=== PATIENT | male | born 1965 | race Caucasian/White ===

== ENCOUNTER 2023-01-30 11:40 | Inpatient (IN) | payer BC, SELFPAY ==
[2023-01-30 11:41] VITALS: BP 158/111; PULSE 99; RESP 18; TEMP 36.9; O2SAT 99; BMI 36.6
--- NOTE | 2023-01-30 12:43 | CT_ITS ---
STUDY: CT ABDOMEN AND PELVIS WITH CONTRAST REASON FOR EXAM: Male, 57 years old. Localized peritonitis right lower quadrant, DIARRHEA X 2 DAYS RADIATION DOSAGE (If Supplied By Facility): CTDIvol = ( 15.98 ) mGy, DLP = ( 1323.63 ) mGycm TECHNIQUE: Transaxial images were obtained from the dome of the diaphragm to the symphysis pubis without oral contrast. IV 100mL Isovue-300 was administered. Sagittal and coronal images were reconstructed. Individualized dose optimization techniques were used for this CT. COMPARISON: None. FINDINGS: The visualized lung bases are unremarkable. Coronary artery calcification. Normal liver. Normal gallbladder and extrahepatic biliary system. Normal spleen. Normal pancreas. Normal bilateral adrenal glands. Normal right kidney. Normal left kidney. Normal visualized stomach. Normal small intestine. There is diverticulosis, with thickening of the colon wall, and pericolonic inflammation changes consistent with acute diverticulitis. 2 tiny air bubbles are seen within the sigmoid mesentery along its antimesenteric side. This is suggestive of a contained localized perforation. A prominent sigmoid diverticulum is seen measuring 2.3 cm x 3 cm. There is redundancy of the sigmoid colon. The crosses to the right side of the midline. The appendix is visualized and appears normal. There is scattered atherosclerotic calcification of the abdominal aorta, without a demonstrated aneurysm. Normal inferior vena cava. There is borderline retroperitoneal lymphadenopathy with enlarged nodes no greater than 10mm in the short axis diameter. Normal urinary bladder. There is a 1.4 cm x 1.9 cm fatty lipoma in the superior aspect of the femoral abductor muscle. Straightening of the normal lumbar lordosis. Disc space narrowing and disc degeneration with subchondral sclerosis at the L5-S1 level. CT/Abdomen/Pelvis W IV Cont ONLY IMPRESSION: Acute sigmoid diverticulitis with inflammatory changes in a redundant sigmoid colon with localized perforation. Electronically Signed: Ac Dempsey MD at 14:02 EST ,
--- NOTE | 2023-01-30 12:47 | EDS_ITS ---
HPI HPI - GI History of Present Illness Chief Complaint: Abd Pain Detail of Chief Complaint: Right lower quadrant abdominal pain Informant: patient Abdominal Pain/Flank Pain Context: Sudden Onset Timing: Continuous Quality: Aching Location: RLQ Current Severity: Mild Maximum Severity: Severe Worsened by: Car ride and Movement Relieved by: Nothing Nausea/Vomiting/Emesis GI Symptom: Positive for Nausea; Negative for Vomiting Diarrhea/Melena/Hematochezia GI Symptom: Positive for Diarrhea (1 to 2/day since onset, yesterday); Negative for Melena or Hematochezia Onset: Yesterday Associated Symptoms Associated Symptoms: Negative for Dysuria, Frequency, Hematuria or Urgency Narrative Narrative: Patient is a middle-aged heavyset gentleman with prior history of right-sided diverticulitis. He also has history of depression, hypertension, hypercholesterolemia and GERD. He denies coronary disease. He denies dysuria, frequency, urgency or hematuria. He denies flank pain. He does endorse nausea without vomiting. He does report 1-2 loose stools yesterday and today. He did not note blood or mucus. He denies orthostatic symptoms. He denies thirst or dry mouth. Prior similar symptoms: Yes (5 years ago when he was diagnosed with right-sided diverticulitis) Recent Illness/Hospitalization: No [facility] Medical History Diverticulitis HTN (hypertension) Hyperlipemia Home Medications atorvastatin 20 mg tablet 20 mg PO DAILY 01/30/23 [History Last Taken Unknown] doxycycline monohydrate 100 mg capsule 100 mg PO BID 01/30/23 [History Last Taken Unknown] fluticasone propionate 50 mcg/actuation nasal spray,suspension 1 spray intranasal DAILY 01/30/23 [History Last Taken Unknown] loratadine 10 mg tablet 10 mg PO DAILY 01/30/23 [History Last Taken Unknown] losartan 50 mg tablet 50 mg PO DAILY 01/30/23 [History Last Taken Unknown] omeprazole 40 mg capsule,delayed release 40 mg PO DAILY 01/30/23 [History Last Taken Unknown] trazodone 150 mg tablet 150 mg PO DAILY 01/30/23 [History Last Taken Unknown] Allergy/AdvReac Type Severity Reaction Status Date / Time No Known Allergies Allergy Verified 01/30/23 11:44 Social History (Updated 01/30/23 @ 12:[address] Akbar Jackson MD) Smoking Status: Light Smoker (<10/day) alcohol intake: current alcohol intake frequency: holidays/special occasions only substance use type: does not use ROS ROS ED Constitutional Constitutional ED: Denies chills, fever(s), subjective, sweats or weight loss ENT ENT ED: Denies ear pain, rhinorrhea or sore throat Cardiovascular Cardiovascular: Denies chest pain, orthopnea, palpitations, paroxysmal nocturnal dyspnea or racing heartbeat Respiratory/Chest Respiratory/Chest: Denies cough, dyspnea, dyspnea on exertion, orthopnea, paroxysmal nocturnal dyspnea or sputum Gastrointestinal Gastrointestinal: Reports abdominal pain, diarrhea and nausea; Denies constipation, melena or vomiting Genitourinary Genitourinary ED: Denies dysuria, hematuria or urinary frequency Musculoskeletal Musculoskeletal: Denies arthralgias, back pain, myalgias or neck pain Integumentary Denies Abrasions Neurologic Neurologic: Denies headache(s), paresthesias or weakness Endocrine Endocrinology: Denies polydipsia, polyphagia or polyuria Hematologic/Lymphatic Hematologic/Lymphatic: Denies easy bleeding or easy bruising EXAM Physical Exam Const Vital Signs: 01/30/23 11:41 Temperature 98.4 F Temperature Source Temporal Pulse Rate 99 Respiratory Rate 18 Blood Pressure 158/111 H Blood Pressure Mean 126 Pulse Ox 99 Oxygen Delivery Method Room Air Positive well nourished, well developed and obese General Appearance ED: well developed; Negative for pallor Nutritional Appearance: obese HEENT Reports TM's clear and moist mucous membranes normocephalic and atraumatic Tympanic Membrane ED: Yes TM's clear Eyes PERRL and EOMs intact bilaterally General Eye ED: Negative for pale conjunctiva or scleral icterus Neck no lymphadenopathy, supple and no JVD Resp normal respiratory effort and clear to auscultation bilaterally Cardio regular rate, regular rhythm, S1 normal heart sound, S2 normal heart sound and no murmurs GI non-distended and no masses; Negative for non-tender Auscultation: hypoactive bowel sounds Palpation: soft, tender RLQ and suprapubic, guarding RLQ and rebound tenderness present other (Right lower quadrant); Negative for rigid, hepatomegaly, splenomegaly, hernia, mass or pulsatile mass Back/Spine no CVA tenderness Extremity full ROM General Extremety ED: Negative for edema or tenderness General Extremity: Negative for edema Neuro CN's II-XII intact bilaterally and moves all extremities Sensorium / Orientation: alert Psych mental status grossly normal and thought process normal Skin no wounds General Skin Exam: Negative for jaundice or pallor Lesions: no lesions Rashes: no rashes Trauma: abrasion MDM MDM MDM Narrative Medical decision making narrative: Patient presents with right-sided abdominal pain. Patient does have peritoneal findings. Differential diagnosis is mesenteric adenitis, appendicitis versus right-sided diverticulitis. Will obtain CT of the abdomen and pelvis with IV contrast L as well as CBC to assess white count differential, BMP to assess renal function and rule out hypokalemia. Since he has peritoneal findings he was administered 4.5 g of Zosyn IV piggyback since he has no allergies to antibiotics. Patient was informed he will require admission to the hospital. He did receive morphine for his pain. History & Record Review Discussion w/independent historian: Patient Additional record(s) reviewed:: Prior inpatient record (Patient admitted at [facility] in the past. He had diverticulitis and required IV antibiotics for 4 days.) Lab Data Attestation: I reviewed the patient's lab results. Lab results narrative: CBC reveals mild shift. White count otherwise is unremarkable. Basic metabolic panel is unremarkable. Glucose elevated 116. CO2 anion gap are normal. Renal functions normal. Labs: Laboratory Results - last 24 hr 01/30/23 01/30/23 12:45 12:45 WBC 11.0 RBC 5.05 Hgb 15.1 Hct 43.8 MCV 86.7 MCH 29.9 MCHC 34.5 RDW Std Deviation 40.6 RDW Coeff of Cleopatra 12.8 Plt Count 227 MPV 9.7 Immature Gran % (Auto) 0.500 Neut % (Auto) 73.8 H Lymph % (Auto) 17.0 L [place] % (Auto) 7.2 Eos % (Auto) 1.2 Baso % (Auto) 0.3 Absolute Neuts (auto) 8.1 H Absolute Lymphs (auto) 1.86 Nucleated RBC % 0 Sodium 141 Potassium 3.5 Chloride 107 Carbon Dioxide 26.0 Anion Gap 8 BUN 20 H Creatinine 1.05 Estim Creat Clear Calc 81.11 Est GFR (MDRD) Af Amer 94 Est GFR (MDRD) Non-Af 78 BUN/Creatinine Ratio 19.0 Glucose 116 H Calcium 9.2 Radiography Diagnostic Testing: Clinical Impression(s) from Imaging Studies Abdomen/Pelvis CT 01/30/23 12:43 IMPRESSION: Acute sigmoid diverticulitis with inflammatory changes in a redundant sigmoid colon with localized perforation. Electronically Signed: Ac Dempsey MD at 14:02 EST , Management Discussion w/another healthcare provider: Hospitalist (Hospitalist informed of patient's history, physical and need for admission.) Discharge Plan Dx/Rx/DC Orders Clinical Impression: Diverticulitis of sigmoid colon, Localized peritonitis, Perforation of sigmoid colon due to diverticulitis, Hypertension Disposition Disposition: Acute Care [facility]
[2023-01-30] MEDS: 0.9% Normal Saline 1,000 ML 1000 ML IV (12:49)
[2023-01-30] MEDS: Ondansetron 4 MG/2 ML Vial IV ×2 (12:51→14:37)
[2023-01-30 12:57] LABS: Absolute Lymphocyte Count 1.86 X10^3/uL (0.83-4.51); Absolute Neutrophil Count 8.1 X10^3/uL (2.0-7.7); Basophil# 0.03 X10^3/uL; Basophil% 0.3 % (0-1); Eosinophil# 0.13 X10^3/uL; Eosinophils% 1.2 % (0-5); Hematocrit 43.8 % (40-54); Hemoglobin 15.1 g/dL (13.0-16.5); Lymphocyte # 1.86 X10^3/ul (0.83-4.51); Mean Corp Hgb Conc 34.5 g/dL (32-36); Mean Corpuscular Hgb 29.9 pg (27.0-32.0); Mean Corpuscular Volume 86.7 fL (80-94); Mean Platelet Vol. 9.7 fl (6.2-12.0); Monocyte# 0.79 X10^3/uL; Monocyte% 7.2 % (0-10); NRBC Flagged by Analyzer 0 % (0-5); Neutrophil # 8.11 X10^3/uL (2.7-7.7); Neutrophil % 73.8 % (47-70); Platelet Count 227 K/mm3 (150-450); RBC Distribution Width CV 12.8 % (11.6-14.6); RBC Distribution Width SD 40.6 fl (35.1-43.9); Red Blood Count 5.05 M/mm3 (4.6-6.2)
[2023-01-30 13:16] LABS: Anion Gap 8 (5-15); BUN 20 mg/dL (7-18); Calcium,Total 9.2 mg/dL (8.5-10.1); Chloride 107 mmol/L (98-107); Creatinine, Serum 1.05 mg/dL (0.70-1.30); EST Glomerular Filtration Rate 78 mL/min (>60); Est Glom Filt Rate - Afr Amer 94 mL/min (>60); Estimated Creatinine Clearance 81.11 ml/min; Glucose 116 mg/dL (74-106); Potassium 3.5 mmol/L (3.5-5.1); Sodium Level 141 mmol/L (136-145)
--- NOTE | 2023-01-30 15:07 | HP.PCM.HOS_ITS ---
[facility] - General General Date of Admission: 01/30/23 Date of Service: 01/30/23 Chief Complaint: Abdominal pain started 2 days ago HPI Narrative ROBI CARTER, is a 57 M with history of sigmoid diverticulitis about 4- 5 years ago came to ED for abdominal pain that started 2 days ago. Initially abdominal pain was mild to moderate intensity, intermittent but today it has become more severe 7-8/10 intensity, more frequent and last longer. Patient denies fever or chills. Denies nausea but has mild loss of appetite and early satiety. Patient having mild thin consistency stool as compared to his normal but denies any obvious rectal bleed/hematemesis or melena. Patient has moved from [place] to be here. In the past he was told that he will need colostomy after sigmoid surgery therefore he was not fever for surgery. He had colonoscopy about 4 5 years ago and some polyps were removed but no red flags or malignant polyp/cancer. In ED, patient had a CT abdomen which shows redundant sigmoid colon with diverticulitis with microperforation. Social history: Patient is smokes 2 to 3 cigarettes/day. He started early age but he quit for 5 years. He recently restarted. Family history: His father had lung cancer and he is . Denies any first-degree family history of colon cancer/IBD [facility] Medical History Diverticulitis HTN (hypertension) Hyperlipemia Home Medications atorvastatin 20 mg tablet 20 mg PO DAILY 01/30/23 [History Last Taken Unknown] doxycycline monohydrate 100 mg capsule 100 mg PO BID 01/30/23 [History Last Taken Unknown] fluticasone propionate 50 mcg/actuation nasal spray,suspension 1 spray intranasal DAILY 01/30/23 [History Last Taken Unknown] loratadine 10 mg tablet 10 mg PO DAILY 01/30/23 [History Last Taken Unknown] losartan 50 mg tablet 50 mg PO DAILY 01/30/23 [History Last Taken Unknown] omeprazole 40 mg capsule,delayed release 40 mg PO DAILY 01/30/23 [History Last Taken Unknown] trazodone 150 mg tablet 150 mg PO DAILY 01/30/23 [History Last Taken Unknown] Allergy/AdvReac Type Severity Reaction Status Date / Time morphine AdvReac Mild Other Verified 01/30/23 15:30 Social History Smoking Status: Light Smoker (<10/day) alcohol intake: current alcohol intake frequency: holidays/special occasions only substance use type: does not use ROS ROS Narrative Constitutional: Reports fatigue and weakness. No fever. HEENT: Reports systems reviewed and no addt'l complaints, except as documented Respiratory/Chest: Denies chest pain, shortness of breath at rest or with exertion Gastrointestinal: Denies coffee ground emesis, hematemesis or vomiting. Rest as described in HPI. Genitourinary: Denies burning urination or new urinary tract symptoms Musculoskeletal: Denies joint pain and limited range of motion Neurologic: Denies seizure-like activity. No focal strokelike symptoms. skin: No ulcer. No rash Endocrinology: Reports systems reviewed and no addt'l complaints, except as documented Hematologic/Lymphatic: Reports systems reviewed and no addt'l complaints, except as documented Rest 14 ROS are negative except as mentioned in HPI Vital Signs Vital Signs Vital Signs: 01/30/23 11:41 Temperature 98.4 F Temperature Source Temporal Pulse Rate 99 Respiratory Rate 18 Blood Pressure 158/111 H Blood Pressure Mean 126 Pulse Ox 99 Oxygen Delivery Method Room Air Weight Weight: 255 lb Body Mass Index (BMI) 36.6 Physical Exam Narrative Physical exam General: Alert, Oriented x3, Cooperative HEENT: Atraumatic, PERRLA, EOMI, Normocephalic Oral: Oral mucosa dry. No Gingival or Mucosal Lesions/ Ulcerations Neck: Supple, No JVD, Negative Carotid Bruits Lungs: Air entry diminished in bilateral lung bases. No crepitation/rhonchi Cardiovascular: Regular rate, Regular Rhythm, Normal S1, Normal S2, No murmurs Abdomen: Bowel Sounds Present, Soft, tenderness present over mid abdomen below umbilicus across bilateral lower quadrants. Mild voluntary guarding. No boardlike rigidity/obvious signs of peritonitis. : Spontaneously voided urine in the morning. No renal angle tenderness. No suprapubic tenderness. Extremities: No edema, Capillary Refill Less than 3 Seconds Skin: No rashes, No breakdown Musculoskeletal: No Tenderness to Palpation of Joints or Extremities Neurological: Cranial nerves II-XII grossly intact, DTR 2+/4 and Symmetrical, Neuro grossly intact Psych/Mental Status: Normal Affect, Appropriate. Results Lab / Micro Data Result Diagrams: 01/30/23 12:45 01/30/23 12:45 Labs: Laboratory Results - last 24 hr 01/30/23 12:45: WBC 11.0, RBC 5.05, Hgb 15.1, Hct 43.8, MCV 86.7, MCH 29.9, MCHC 34.5, RDW Std Deviation 40.6, RDW Coeff of Cleopatra 12.8, Plt Count 227, MPV 9.7, Immature Gran % (Auto) 0.500, Neut % (Auto) 73.8 H, Lymph % (Auto) 17.0 L, [place] % (Auto) 7.2, Eos % (Auto) 1.2, Baso % (Auto) 0.3, Absolute Neuts (auto) 8.1 H, Absolute Lymphs (auto) 1.86, Nucleated RBC % 0 01/30/23 12:45: Sodium 141, Potassium 3.5, Chloride 107, Carbon Dioxide 26.0, Anion Gap 8, BUN 20 H, Creatinine 1.05, Estim Creat Clear Calc 81.11, Est GFR (MDRD) Af Amer 94, Est GFR (MDRD) Non-Af 78, BUN/Creatinine Ratio 19.0, Glucose 116 H, Calcium 9.2 Radiology Impression Abdomen/Pelvis CT 01/30/23 12:43 IMPRESSION: Acute sigmoid diverticulitis with inflammatory changes in a redundant sigmoid colon with localized perforation. Electronically Signed: Ac Dempsey MD at 14:02 EST , Assessment & Plan Assessment/Plan (1) Diverticulitis of sigmoid colon: PLAN: Plan This is a 57-year-old gentleman is being admitted for abdominal pain for 2 days found to have sigmoid diverticulitis with microperforation. 1. Acute on recurrent sigmoid diverticulitis with microperforation: Patient is being admitted on [facility] floor. CT abdomen individually reviewed and shows redundant segment of sigmoid colon with diverticulum 2.3 x 3 cm and 2 tiny air bubbles within the sigmoid mesentery. Patient is started on IV Zosyn. Abdominal exam is not consistent with peritonitis. We will keep the patient n.p.o. IV fluid half-normal saline with IV KCl. Serum magnesium ordered. If abdominal pain progresses or clinical condition worsens will consult general surgery 2. Hypertension: BP 158/111. IV hydralazine as needed for systolic blood pressure more than 180 mmHg. Oral meds with sip of water continued from tomorrow if needed. 3. Dyslipidemia: On atorvastatin. Hold it. 4. GERD on PPI. Will change to IV PPI. 5. Mild anxiety/depression: Patient on trazodone continued from tomorrow. DVT prophylaxis, moderate risk: Enoxaparin 40 mg subcu daily. Living will/advanced directive/end of life care: Patient does not have living will or advanced directive. He does not have designated power of estate attorney for health. After discussion of benefits/risks procedures involved with full code, DNR CC arrest and DNR CC, the patient opted for full code. Patient does want artificial life support including intubation, tube feed, ventilator and/chest compression, central venous catheter, vasopressor and DC shock if needed Total time spent in [id number] encounter in discussion of advanced directive 17 minutes. Laboratory Results 01/30/23 12:45: WBC 11.0, RBC 5.05, Hgb 15.1, Hct 43.8, MCV 86.7, MCH 29.9, MCHC 34.5, RDW Std Deviation 40.6, RDW Coeff of Cleopatra 12.8, Plt Count 227, MPV 9.7, Immature Gran % (Auto) 0.500, Neut % (Auto) 73.8 H, Lymph % (Auto) 17.0 L, [place] % (Auto) 7.2, Eos % (Auto) 1.2, Baso % (Auto) 0.3, Absolute Neuts (auto) 8.1 H, Absolute Lymphs (auto) 1.86, Nucleated RBC % 0 01/30/23 12:45: Sodium 141, Potassium 3.5, Chloride 107, Carbon Dioxide 26.0, Anion Gap 8, BUN 20 H, Creatinine 1.05, Estim Creat Clear Calc 81.11, Est GFR (MDRD) Af Amer 94, Est GFR (MDRD) Non-Af 78, BUN/Creatinine Ratio 19.0, Glucose 116 H, Calcium 9.2 Clinical Impression(s) from Imaging Studies Abdomen/Pelvis CT 01/30/23 12:43
[2023-01-30] MEDS: morphine 8 MG/ML Syringe IV (15:08)
--- NOTE | 2023-01-30 15:19 | ED.RN ---
THIS RN ADMINISTERING MORPHINE WHEN PATIENT STATED HE DID NOT WANT THE REST OF MORPHINE DUE TO THE PRESSURE AND PAIN IT WAS CAUSING HIM TO HAVE IN HIS NECK. PATIENT STATED HE DOES NOT WANT ANYMORE MORPHINE DURING HIS STAY.
[2023-01-30 15:21] VITALS: BP 141/95; PULSE 84; RESP 19; TEMP 36.6; O2SAT 100
[2023-01-30 15:42] VITALS: BMI 36.3
[2023-01-30 15:45] VITALS: BP 131/88; PULSE 74; RESP 18; TEMP 36.8; O2SAT 100
[2023-01-30 15:47] LABS: Magnesium 2.1 mg/dL (1.6-2.6)
[2023-01-30] MEDS: KCL 20MEQ in 0.45%NS 20 MEQ/1,000 ML IV.SOLN. 100 MEQ IV (17:15)
[2023-01-30] MEDS: Enoxaparin 40 MG/0.4 ML Syringe SC (17:16)
[2023-01-30] MEDS: 0.9% Saline Lock 10 ML Syringe IV (17:17)
[2023-01-30] MEDS: Acetaminophen 325 MG Tablet 650 MG PO (18:56)
[2023-01-30 22:30] VITALS: BP 122/74; PULSE 78; RESP 18; TEMP 37.2; O2SAT 98
[2023-01-30] MEDS: Losartan Potassium 50 MG Tablet PO (22:36)
[2023-01-30] MEDS: traZODone 50 MG Tablet 150 MG PO (22:36)
[2023-01-31] MEDS: Acetaminophen 325 MG Tablet 650 MG PO ×2 (02:32→11:32)
[2023-01-31] MEDS: KCL 20MEQ in 0.45%NS 20 MEQ/1,000 ML IV.SOLN. 100 MEQ IV (03:39)
[2023-01-31] MEDS: HYDROmorphone 1 MG/ML Syringe IV (03:39)
[2023-01-31] MEDS: 0.9% Saline Lock 10 ML Syringe IV (03:39)
[2023-01-31 04:01] VITALS: BP 101/89; PULSE 68; RESP 18; TEMP 37; O2SAT 98
[2023-01-31 05:26] LABS: Absolute Lymphocyte Count 1.82 X10^3/uL (0.83-4.51); Absolute Neutrophil Count 5.4 X10^3/uL (2.0-7.7); Basophil# 0.02 X10^3/uL; Basophil% 0.2 % (0-1); Eosinophil# 0.19 X10^3/uL; Eosinophils% 2.3 % (0-5); Hematocrit 37.6 % (40-54); Lymphocyte # 1.82 X10^3/ul (0.83-4.51); Mean Corp Hgb Conc 34.6 g/dL (32-36); Mean Corpuscular Hgb 30.2 pg (27.0-32.0); Mean Corpuscular Volume 87.2 fL (80-94); Mean Platelet Vol. 9.8 fl (6.2-12.0); Monocyte# 0.85 X10^3/uL; Monocyte% 10.3 % (0-10); NRBC Flagged by Analyzer 0 % (0-5); Neutrophil # 5.38 X10^3/uL (2.7-7.7); Platelet Count 171 K/mm3 (150-450); RBC Distribution Width CV 12.9 % (11.6-14.6); RBC Distribution Width SD 41.1 fl (35.1-43.9); Red Blood Count 4.31 M/mm3 (4.6-6.2); White Blood Count 8.3 K/mm3 (4.4-11.0)
[2023-01-31 05:54] LABS: Anion Gap 7 (5-15); BUN 17 mg/dL (7-18); Calcium,Total 7.9 mg/dL (8.5-10.1); Chloride 106 mmol/L (98-107); Creatinine, Serum 0.94 mg/dL (0.70-1.30); EST Glomerular Filtration Rate 88 mL/min (>60); Est Glom Filt Rate - Afr Amer 106 mL/min (>60); Glucose 99 mg/dL (74-106); Phosphorus 3.2 mg/dL (2.5-4.9); Potassium 3.6 mmol/L (3.5-5.1); Sodium Level 138 mmol/L (136-145)
[2023-01-31 05:59] VITALS: BMI 36.0
--- NOTE | 2023-01-31 08:16 | PCM.PN.HOSP ---
Reason for Visit Reason for Visit: Follow-up for acute on recurrent diverticulitis Diagnoses Diverticulitis of large intestine without perforation or abscess without bleeding (01/30/23) Subjective Subjective Patient still has mild to moderate pain 5-6/10 intensity. Feels hungry. Passing flatus but did not had a bowel movement. Objective Data Objective Data Vital Signs: Vital Signs Temp Pulse Resp BP Pulse Ox O2 Del Method 98.6 F 68 18 101/89 H 98 Room Air 01/31/23 04:01 01/31/23 04:01 01/31/23 04:01 01/31/23 04:01 01/31/23 04:01 01/31/23 04:01 Oxygen Delivery Method Room Air Weight: 251 lb 1.704 oz Body Mass Index (BMI) 36.0 Intake & Output: Intake and Output for Last 24 Hours 01/29/23 01/30/23 01/31/23 23:59 23:59 23:59 Intake Total 1210 / 1260 1388.33 / 1388.33 Balance 1210 / 1260 1388.33 / 1388.33 Lab / Micro Data Result Diagrams: 01/31/23 05:03 01/31/23 05:03 Labs: Laboratory Results - last 24 hr 01/30/23 12:45: WBC 11.0, RBC 5.05, Hgb 15.1, Hct 43.8, MCV 86.7, MCH 29.9, MCHC 34.5, RDW Std Deviation 40.6, RDW Coeff of Cleopatra 12.8, Plt Count 227, MPV 9.7, Immature Gran % (Auto) 0.500, Neut % (Auto) 73.8 H, Lymph % (Auto) 17.0 L, [place] % (Auto) 7.2, Eos % (Auto) 1.2, Baso % (Auto) 0.3, Absolute Neuts (auto) 8.1 H, Absolute Lymphs (auto) 1.86, Nucleated RBC % 0 01/30/23 12:45: Sodium 141, Potassium 3.5, Chloride 107, Carbon Dioxide 26.0, Anion Gap 8, BUN 20 H, Creatinine 1.05, Estim Creat Clear Calc 81.11, Est GFR (MDRD) Af Amer 94, Est GFR (MDRD) Non-Af 78, BUN/Creatinine Ratio 19.0, Glucose 116 H, Calcium 9.2 01/30/23 12:45: Magnesium 2.1 01/31/23 05:03: WBC 8.3, RBC 4.31 L, Hgb 13.0, Hct 37.6 L, MCV 87.2, MCH 30.2, MCHC 34.6, RDW Std Deviation 41.1, RDW Coeff of [place]atra 12.9, Plt Count 171, MPV 9.8, Immature Gran % (Auto) 0.200, Neut % (Auto) 65.0, Lymph % (Auto) 22.0, [place] % (Auto) 10.3 H, Eos % (Auto) 2.3, Baso % (Auto) 0.2, Absolute Neuts (auto) 5.4, Absolute Lymphs (auto) 1.82, Nucleated RBC % 0 01/31/23 05:03: Sodium 138, Potassium 3.6, Chloride 106, Carbon Dioxide 25.0, Anion Gap 7, BUN 17, Creatinine 0.94, Estim Creat Clear Calc 90.60, Est GFR (MDRD) Af Amer 106, Est GFR (MDRD) Non-Af 88, BUN/Creatinine Ratio 18.0, Glucose 99, Calcium 7.9 L, Phosphorus 3.2 Radiography Diagnostic Testing: Radiology Impression Abdomen/Pelvis CT 01/30/23 12:43 IMPRESSION: Acute sigmoid diverticulitis with inflammatory changes in a redundant sigmoid colon with localized perforation. Electronically Signed: Ac Dempsey MD at 14:02 EST Reading Location ID and State: [facility] / [place] , Service support , Physical Exam Narrative Physical exam General: Alert, Oriented x3, Cooperative HEENT: Atraumatic, PERRLA, EOMI, Normocephalic Oral: Oral mucosa dry. No Gingival or Mucosal Lesions/ Ulcerations Neck: Supple, No JVD, Negative Carotid Bruits Lungs: Air entry diminished in bilateral lung bases. No crepitation/rhonchi Cardiovascular: Regular rate, Regular Rhythm, Normal S1, Normal S2, No murmurs Abdomen: Bowel Sounds Present, Soft, mild tenderness over left flank and mid abdomen. No guarding. No boardlike rigidity/obvious signs of peritonitis. : Spontaneously voided urine in the morning. No renal angle tenderness. No suprapubic tenderness. Extremities: No edema, Capillary Refill Less than 3 Seconds Skin: No rashes, No breakdown Musculoskeletal: No Tenderness to Palpation of Joints or Extremities Neurological: Cranial nerves II-XII grossly intact, DTR 2+/4 and Symmetrical, Neuro grossly intact Psych/Mental Status: Normal Affect, Appropriate. Assessment & Plan Assessment/Plan (1) Diverticulitis of sigmoid colon: PLAN: Plan This is a 57-year-old gentleman is being admitted for abdominal pain for 2 days found to have sigmoid diverticulitis with microperforation. 1. Acute on recurrent sigmoid complicated diverticulitis with tiny air in sigmoid wall: Patient is being admitted on [facility] floor. CT abdomen individually reviewed and shows redundant segment of sigmoid colon with diverticulum 2.3 x 3 cm and 2 tiny air bubbles within the sigmoid mesentery. Patient is started on IV Zosyn. Abdominal exam is not consistent with peritonitis. We will keep the patient n.p.o. IV fluid half-normal saline with IV KCl. 01/31: Serum magnesium and phosphorus normal. I discussed with the surgeon Dr. Aranda about the patient clinical status and CT abdomen. He reviewed the CT images and does not think that patient had a microperforation and tiny air are in sigmoid wall. Patient clinically looks better and passing flatus therefore clear liquids allowed. Advance as per tolerated. Continue IV antibiotic. He will follow-up with surgeon after discharge and this was communicated to the patient. 2. Hypertension: BP 158/111. IV hydralazine as needed for systolic blood pressure more than 180 mmHg. Resume losartan 3. Dyslipidemia: On atorvastatin. 01/31: Resume atorvastatin and other oral medications. 4. GERD on PPI. Will change to IV PPI. 01/31: DC IV PPI and resume oral PPI. 5. Mild anxiety/depression: Patient on trazodone DVT prophylaxis, moderate risk: Enoxaparin 40 mg subcu daily. Living will/advanced directive/end of life care: Patient does not have living will or advanced directive. He does not have designated power of erisa attorney for health. After discussion of benefits/risks procedures involved with full code, DNR CC arrest and DNR CC, the patient opted for full code. Patient does want artificial life support including intubation, tube feed, ventilator and/chest compression, central venous catheter, vasopressor and DC shock if needed Clinical Impression(s) from Imaging Studies Abdomen/Pelvis CT 01/30/23 12:43 IMPRESSION: Acute sigmoid diverticulitis with inflammatory changes in a redundant sigmoid colon with localized perforation. Charges/Coding Visit Charges Inpatient E&M: 88315 Subs Hosp L2
[2023-01-31 08:26] VITALS: BP 109/76; PULSE 65; RESP 16; TEMP 36.8; O2SAT 97
[2023-01-31] MEDS: Enoxaparin 40 MG/0.4 ML Syringe SC (10:22)
--- NOTE | 2023-01-31 11:15 | CASEMGMT ---
RN JAMIA Face to Face with patient for initial transition planning/care coordination assessment. RN CM introduced self and role at [facility]. Patient lying in bed, alert and oriented. Patient willing to participate in assessment and is able to answer all questions appropriately. Care providers, pharmacy, and demographics verified. Patient wishes to discharge home, denies need for home health at this time. Patient states he has no further needs or concerns at this time. CM to follow for discharge planning needs that may arise. PCP: Clare Fontaine Specialists: none Preferred Pharmacy: [facility] Insurance: [employer] Prescription Benefit: yes Living Will/HPOA: none LNOK: Living Arrangements: Patient lives with in single story home with no steps to enter. Patient states he is independent at home. Transportation: self, DME/HHC: Patient has cpap and raised toilets at home. No previous HHC or SNF. Disposition Plan: Patient to discharge home with family support and follow-up plans in place Tameka RICARDO, RN, CM
[2023-01-31 14:26] VITALS: BP 113/72; PULSE 75; RESP 16; TEMP 36.8; O2SAT 99
[2023-01-31 21:15] VITALS: BP 112/68; PULSE 81; RESP 18; TEMP 36.8; O2SAT 96
[2023-01-31] MEDS: traZODone 50 MG Tablet 150 MG PO (21:22)
[2023-01-31] MEDS: Atorvastatin Calcium 20 MG Tablet PO (21:22)
[2023-01-31] MEDS: Losartan Potassium 50 MG Tablet PO (21:22)
[2023-02-01 06:03] VITALS: BP 139/80; PULSE 73; RESP 18; TEMP 37; O2SAT 96; BMI 36.0
--- NOTE | 2023-02-01 06:14 | NURSING ---
vsa timing not followed this shift to honor pt's request to not be woken.
[2023-02-01 06:32] LABS: Anion Gap 9 (5-15); BUN 13 mg/dL (7-18); BUN/Creat Ratio 12.5 RATIO (10-20); Calcium,Total 8.5 mg/dL (8.5-10.1); Chloride 107 mmol/L (98-107); Creatinine, Serum 1.04 mg/dL (0.70-1.30); EST Glomerular Filtration Rate 78 mL/min (>60); Est Glom Filt Rate - Afr Amer 95 mL/min (>60); Estimated Creatinine Clearance 81.89 ml/min; Glucose 98 mg/dL (74-106); Potassium 3.6 mmol/L (3.5-5.1); Sodium Level 142 mmol/L (136-145)
--- NOTE | 2023-02-01 08:40 | DCINST_ITS ---
Discharge Instructions Diet Discharge Diet: Light diet - advance as tolerated (Advised bland diet for 5 days) and Low fat / Low cholesterol Activity Discharge Activity: Return to Normal Activity Weight Bearing Status: Weight bearing as tolerated Dressing / Incision Call your doctor if you observe: Fever of 101 or Higher, Coldness, Increased Pain, Numbness or Tingling, Change in Color, Inability to urinate, Inability to have a bowel movement, Shortness of breath, Dizziness, Fainting spells, Swelling in the ankles, Chest pain, Prolonged hiccupping, Increased palpitations (irregular heartbeat) and Calf discomfort Follow Up Care When: IN 2 WEEKS Test Results: Test results from this visit will be discussed in further detail at your follow- up appointment, if applicable. Discharge Plan Admission Admit Date/Time: 01/30/23 15:24 Attending Provider: Jaskaran Magallanes Primary Care Provider: ALBARO HODGE Discharge Orders/Prescriptions Prescriptions: New amoxicillin-pot clavulanate 875-125 mg tablet 1 tab PO BID Qty: 14 0RF Continued losartan 50 mg tablet 50 mg PO DAILY Label Comments: TAKE 1 TABLET BY MOUTH EVERY DAY atorvastatin 20 mg tablet 20 mg PO DAILY Label Comments: TAKE 1 TABLET BY MOUTH EVERY DAY omeprazole 40 mg capsule,delayed release(DR/EC) 40 mg PO DAILY trazodone 150 mg tablet 150 mg PO QHS Label Comments: TAKE 1 TABLET BY MOUTH EVERYDAY AT BEDTIME fluticasone propionate 50 mcg/actuation spray,suspension 1 spray INTRANASAL DAILY Label Comments: SPRAY 1 SPRAY INTO EACH NOSTRIL EVERY DAY loratadine 10 mg tablet 10 mg PO DAILY Discontinued doxycycline monohydrate 100 mg capsule 100 mg PO BID Label Comments: TAKE 1 CAPSULE BY MOUTH TWICE A DAY Referrals / Follow Up: ALBARO HODGE [Other] ALBARO HODGE [Other] Isac Aranda MD [Med Staff - Active Staff] - Within 2 Weeks (Call office to make appointment) Disposition Disposition (needs filled in before D/C Order can be placed): Home, Self Care
--- NOTE | 2023-02-01 08:44 | DS.PCM_ITS ---
Providers Date of Admission: 01/30/23 Date of Discharge: 02/01/23 Primary Care Physician: ALBARO OHDGE Reason For Visit: ACUTE SIGMOID DIVERTICULITIS W/PERFORATION AND PER Diagnosis Discharge Diagnosis (1) Diverticulitis of sigmoid colon: Status: Acute Code(s): K57.32 - Diverticulitis of large intestine without perforation or abscess with out bleeding Plan This is a 57-year-old gentleman is being admitted for abdominal pain for 2 days found to have sigmoid diverticulitis with microperforation. 1. Acute on recurrent sigmoid complicated diverticulitis with tiny air in sigmoid wall: Patient is being admitted on [facility] floor. CT abdomen individually reviewed and shows redundant segment of sigmoid colon with diverticulum 2.3 x 3 cm and 2 tiny air bubbles within the sigmoid mesentery. Patient is started on IV Zosyn. Abdominal exam is not consistent with peritonitis. We will keep the patient n.p.o. IV fluid half-normal saline with IV KCl. 01/31: Serum magnesium and phosphorus normal. I discussed with the surgeon Dr. Aranda about the patient clinical status and CT abdomen. He reviewed the CT images and does not think that patient had a microperforation and tiny air are in sigmoid wall. Patient clinically looks better and passing flatus therefore clear liquids allowed. Advance as per tolerated. Continue IV antibiotic. He will follow-up with surgeon after discharge and this was communicated to the patient. 02/01: Diet advanced to soft/transitional diet advised to continue for 5 days. Patient takes doxycycline for hidradenitis. Patient is discharged on 7 more days of Augmentin 875 mg twice daily. Appointment made with Dr. Aranda in 2 weeks. Patient suggested lactobacillus 1 tablet twice daily [id number] for 10 days to avoid antibiotic associated side effects/diarrhea 2. Hypertension: BP 158/111. IV hydralazine as needed for systolic blood pressure more than 180 mmHg. Resume losartan 02/01: BP is controlled 122/65. 3. Dyslipidemia: On atorvastatin. 01/31: Resume atorvastatin and other oral medications. 4. GERD on PPI. Will change to IV PPI. 01/31: DC IV PPI and resume oral PPI. 5. Mild anxiety/depression: Patient on trazodone DVT prophylaxis, moderate risk: Enoxaparin 40 mg subcu daily. Discharge medication reconciliation done. Discharge follow-up instructions completed. Discharge process discussed with the patient and all questions were answered to patient's satisfaction. Total time spent, exact 35 minutes on discharge meds reconciliation, examination, coordination of care with nurses and ancillary staff, review of imaging and blood test and discussion with the patient on follow-up instructions. Living will/advanced directive/end of life care: Patient does not have living will or advanced directive. He does not have designated power of transactional attorney for health. After discussion of benefits/risks procedures involved with full code, DNR CC arrest and DNR CC, the patient opted for full code. Patient does want artificial life support including intubation, tube feed, ventilator and/chest compression, central venous catheter, vasopressor and DC shock if needed Clinical Impression(s) from Imaging Studies Abdomen/Pelvis CT 01/30/23 12:43 IMPRESSION: Acute sigmoid diverticulitis with inflammatory changes in a redundant sigmoid colon with localized perforation. Medications at Discharge Home Medications atorvastatin 20 mg tablet 20 mg PO DAILY cholesterol 01/30/23 fluticasone propionate 50 mcg/actuation nasal spray,suspension 1 spray intranasal DAILY allergies 01/30/23 loratadine 10 mg tablet 10 mg PO DAILY allergies 01/30/23 losartan 50 mg tablet 50 mg PO DAILY bp 01/30/23 omeprazole 40 mg capsule,delayed release 40 mg PO DAILY GERD 01/30/23 trazodone 150 mg tablet 150 mg PO QHS sleep 01/30/23 amoxicillin 875 mg-potassium clavulanate 125 mg tablet 1 tab PO BID #14 tabs 02/01/23 doxycycline monohydrate 100 mg tablet 100 mg PO BID #60 tabs 02/01/23 Physical Exam Narrative Physical exam General: Alert, Oriented x3, Cooperative HEENT: Atraumatic, PERRLA, EOMI, Normocephalic Oral: Oral mucosa dry. No Gingival or Mucosal Lesions/ Ulcerations Neck: Supple, No JVD, Negative Carotid Bruits Lungs: Air entry diminished in bilateral lung bases. No crepitation/rhonchi Cardiovascular: Regular rate, Regular Rhythm, Normal S1, Normal S2, No murmurs Abdomen: Bowel Sounds Present, Soft, tenderness over left-sided and flank is improved. No guarding. No boardlike rigidity/obvious signs of peritonitis. : Spontaneously voided urine in the morning. No renal angle tenderness. No suprapubic tenderness. Extremities: No edema, Capillary Refill Less than 3 Seconds Skin: No rashes, No breakdown Musculoskeletal: No Tenderness to Palpation of Joints or Extremities Neurological: Cranial nerves II-XII grossly intact, DTR 2+/4 and Symmetrical, Neuro grossly intact Psych/Mental Status: Normal Affect, Appropriate. Weight / BMI Weight Weight: 251 lb 4.8 oz Body Mass Index (BMI) 36.0 ABG / Lab / Microbiology Data Result Diagrams: 01/31/23 05:03 02/01/23 05:06 Laboratory: Laboratory Results - last 24 hr 02/01/23 05:06: Sodium 142, Potassium 3.6, Chloride 107, Carbon Dioxide 26.0, Anion Gap 9, BUN 13, Creatinine 1.04, Estim Creat Clear Calc 81.89, Est GFR (MDRD) Af Amer 95, Est GFR (MDRD) Non-Af 78, BUN/Creatinine Ratio 12.5, Glucose 98, Calcium 8.5 D/C Instructions Discharge Diet: Light diet - advance as tolerated (Advised bland diet for 5 days) and Low fat / Low cholesterol Weight Bearing Status: Weight bearing as tolerated Call your doctor if you observe: Fever of 101 or Higher, Coldness, Increased P ain, Numbness or Tingling, Change in Color, Inability to urinate, Inability to have a bowel movement, Shortness of breath, Dizziness, Fainting spells, Swelling in the ankles, Chest pain, Prolonged hiccupping, Increased palpitations (irregular heartbeat) and Calf discomfort When: IN 2 WEEKS Meaningful Use Info Meaningful Use Diagnoses (Choose all that apply): None applicable Discharge Plan Admission Admit Date/Time: 01/30/23 15:24 Attending Provider: Jaskaran Magallanes Primary Care Provider: ALBARO HODGE Instructions Additional Instructions / Restrictions: Lactobacillus probiotic, [id number] 1 tablet twice daily for 10 days. Discussed with the patient. Discharge Orders/Prescriptions Prescriptions: New amoxicillin-pot clavulanate 875-125 mg tablet 1 tab PO BID Qty: 14 0RF doxycycline monohydrate 100 mg tablet 100 mg PO BID Qty: 60 0RF Continued losartan 50 mg tablet 50 mg PO DAILY Label Comments: TAKE 1 TABLET BY MOUTH EVERY DAY atorvastatin 20 mg tablet 20 mg PO DAILY Label Comments: TAKE 1 TABLET BY MOUTH EVERY DAY omeprazole 40 mg capsule,delayed release(DR/EC) 40 mg PO DAILY trazodone 150 mg tablet 150 mg PO QHS Label Comments: TAKE 1 TABLET BY MOUTH EVERYDAY AT BEDTIME fluticasone propionate 50 mcg/actuation spray,suspension 1 spray INTRANASAL DAILY Label Comments: SPRAY 1 SPRAY INTO EACH NOSTRIL EVERY DAY loratadine 10 mg tablet 10 mg PO DAILY Discontinued doxycycline monohydrate 100 mg capsule 100 mg PO BID Label Comments: TAKE 1 CAPSULE BY MOUTH TWICE A DAY Referrals / Follow Up: ALBARO HODGE [Other] ALBARO HODGE [Other] Isac Aranda MD [Med Staff - Active Staff] - 02/14/23 12:45 pm (Call office to make appointment) Disposition Disposition (needs filled in before D/C Order can be placed): Home, Self Care Charges/Coding Visit Charges Inpatient E&M: 01152 Disch Hosp >30min
[2023-02-01 09:19] VITALS: BP 122/65; PULSE 70; RESP 18; TEMP 37.3; O2SAT 98
[2023-02-01] MEDS: Acetaminophen 325 MG Tablet 650 MG PO (09:27)
[2023-02-01] MEDS: Pantoprazole Sodium 40 MG Tablet PO (09:27)
[2023-02-01] MEDS: Enoxaparin 40 MG/0.4 ML Syringe SC (09:28)
== END 2023-02-01 11:58 | disposition home or self-care (01) | DRG 392 ==
LOC: ED 14:30 → PCU 15:39
PROVIDERS: Admitting Provider Internal Medicine; Emergency Provider Emergency Medicine; Visit Provider Internal Medicine
DX: K57.20 Diverticulitis of large intestine with perforation and abscess without bleeding (principal); E78.00 Pure hypercholesterolemia, unspecified; K21.9 Gastro-esophageal reflux disease without esophagitis; I10 Essential (primary) hypertension; F17.210 Nicotine dependence, cigarettes, uncomplicated; F41.9 Anxiety disorder, unspecified; F32.A Depression, unspecified; Z79.899 Other long term (current) drug therapy
CPT/HCPCS: 36415; 74177; 80048; 83735; 84100; 85025; 94668; 99283; J7030; Q9967; A4216; J2405

== ENCOUNTER → 2023-02-25 | Outpatient (CLI) | payer BC, SELFPAY | END | disposition home or self-care (01) | LOC: LABSPEC 11:59 | PROVIDERS: Referring Provider Physician Assistant; Visit Provider Physician Assistant | DX: L73.2 Hidradenitis suppurativa (principal) | CPT/HCPCS: 87070; 87205 ==

== ENCOUNTER 2023-03-29 06:15 | Day surgery (SDC) | payer BC, SELFPAY ==
[2023-03-29] MEDS: Lactated Ringers 1,000 ML 15 ML IV (06:48)
[2023-03-29 06:49] VITALS: BP 120/83; PULSE 83; RESP 18; TEMP 36.7; O2SAT 96; BMI 35.3
--- NOTE | 2023-03-29 07:30 | COLBX_PTH ---
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 Isac Aranda MD : 1965 BED: DIS: 03/29/2023 SPEC #: [id number] RECD: 03/29/23 11:07 STATUS: DILLON BOWLINGJennifer #: [id number] PATRICIA: 03/29/23 07:[address]: Isac Aranda DEPT: SURGICAL PATHOLOGY RECD BY: Leanna Girard ENTERED: 03/29/23 12:37 SP TYPE: COLON BX OTHR DR: Dr. West Alston MD Tissues: A - Cecum, NOS B - Transverse colon Procedures: Surgery Specimen Level IV HEADER OPERATION: Colonoscopy (MAC) PRE-OP DIAGNOSIS: Diverticulitis TISSUE SUBMITTED: A ? Cecal polyp, B ? Transverse colon polyp MICROSCOPIC DIAGNOSIS A. Cecal polyp, biopsy: Fragments of tubular adenoma. B. Transverse colon polyp, biopsy: Tubular adenoma. THOMAS:carin 04/01/2023 MICROSCOPIC DESCRIPTION Slides are reviewed. GROSS DESCRIPTION A - Received in fixative is one container labeled with the patient's name and designated cecal polyp. The specimen consists of multiple irregular fragments of light colmenares soft tissue that in aggregate measure 0.5 x 0.5 x 0.1 cm. The specimen is totally submitted in one cassette. B - Received in fixative is one container labeled with the patient's name and designated transverse colon polyp. The specimen consists of one irregular fragment of light colmenares soft tissue that measures 0.3 x 0.2 x 0.1 cm. The specimen is totally submitted in one cassette. / THOMAS:carin 03/29/2023 TC:1 CPT: 23425 x2
--- NOTE | 2023-03-29 07:57 | PCM.HP.BLA ---
History and Physical Date of Admission: 03/29/23 Intake Vital Signs ? 01/31/2310:02 Height 5 ft 10 in Intake Visit Reasons:?Hosp F/U 02/01 Acute Sigmoid Diverticulitis Chief Complaint: diverticulitis perforation Allergies morphine Adverse Reaction (Mild, Verified 02/14/23 12:55) Other Medications atorvastatin 20 mg tablet 20 mg PO DAILY cholesterol 01/30/23 [History Confirmed 02/14/23] fluticasone propionate 50 mcg/actuation nasal spray,suspension 1 spray intranasal DAILY allergies 01/30/23 [History Confirmed 02/14/23] loratadine 10 mg tablet 10 mg PO DAILY allergies 01/30/23 [History Confirmed 02/14/23] losartan 50 mg tablet 50 mg PO DAILY bp 01/30/23 [History Confirmed 02/14/23] omeprazole 40 mg capsule,delayed release 40 mg PO DAILY GERD 01/30/23 [History Confirmed 02/14/23] trazodone 150 mg tablet 150 mg PO QHS sleep 01/30/23 [History Confirmed 02/14/23] PFSH Medical History? Diverticulitis Diverticulitis of sigmoid colon HTN (hypertension) Hyperlipemia Hypertension Social History? Smoking Status:? Light Smoker (<10/day) alcohol intake:? current alcohol intake frequency: holidays/special occasions only substance use type:? does not use HPI HPI HPI: Patient is here following up after admission for diverticulitis.? Patient reports he is doing well with no pain at this time.? He is having bowel movements but he reports they are ribbonlike but that has been going on for years.? He denies any nausea or vomiting or fevers or chills. ROS General General: No weight change or fatigue HEENT HEENT: No difficulty swallowing Endo Endocrine: No thyroid disease Musc Musculoskeletal: No back problems or arthritis Cardio Cardiovascular: No pacemaker, heart disease, atrial fibrillation, high blood pressure, heart attack, heart stent, palpitations or chest pain Psych Psychiatric: No depression or anxiety Resp Respiratory: No shortness of breath, No cough, No COPD, No asthma and No emphysema Gastro Gastrointestinal: No abdominal pain, No nausea or vomiting, No diarrhea, No constipation, No blood in stool, No acid reflux, No hemorrhoids, No ulcers, No gallbladder problem and No black,tarry stools Dk Hematologic: No blood thinners Exam Const General: cooperative Orientation: alert and oriented x3 HENMT Head: normal to inspection Neck Neck: normal visual inspection and full ROM Chest Chest palpation & inspection: normal inspection of the chest Resp Effort & Inspection: normal respiratory effort Auscultation: clear to auscultation bilaterally Cardio Rate: regular rate Rhythm: regular rhythm GI Inspection: non-distended Palpation: soft and nontender Skin General: no rashes or lesions noted Neuro General: patient alert and patient oriented x3 Extrem General: full ROM Psych Appearance: grossly normal Mental Status: mental status grossly normal Assessment and Plan Assessment and Plan (1) Diverticulitis of sigmoid colon: ?Status:?Inactive ?Plan: Patient was recently admitted with diverticulitis with possible microperforation.? Patient is doing well and is off his antibiotics.? He is tolerating a diet but does stated for years has been having ribbonlike stools.? His last colonoscopy was 5 years ago and polyps were identified and removed.? Patient is due for colonoscopy anyway but should have one due to the diverticulitis.? I discussed possible surgery with him and that we do discuss this further after colonoscopy.? I will schedule for colonoscopy in 4 weeks. I explained endoscopy in detail to the patient.? I explained the risks including but not limited to stroke or heart attack with anesthesia, perforation of the GI tract, bleeding, infection.? I explained that any of these could necessitate further emergency surgery.? The patient understands and all questions were answered sufficiently.? The patient wishes to proceed with procedure. Isac Aranda MD Pager: [facility] [address] [place] [address], [address] [place] [address] Office: I have examined the patient and the H&P has been reviewed. There are no clinical changes since date of exam.
[2023-03-29 07:58] VITALS: BP 110/74; BP 120/83; PULSE 63; RESP 16; TEMP 36.3; O2SAT 93
[2023-03-29 08:03] VITALS: BP 108/76; BP 120/83; PULSE 62; RESP 16; O2SAT 93
--- NOTE | 2023-03-29 08:03 | OP.COLON_ITS ---
Patient Name: West Jane Procedure Date: 03/29/2023 7:19 AM Date of : 1965 Age: 57 Procedure: Colonoscopy Indications: Follow-up of diverticulitis Providers: Isac Aranda MD Referring MD: Isac Aranda MD Medicines: Monitored Anesthesia Care Patient Profile: This is a 57 year old male. Refer to note in patient chart for documentation of history and physical. Last Colonoscopy: several years ago. Complications: No immediate complications. Procedure: Pre-Anesthesia Assessment: - Prior to the procedure, a History and Physical was performed, and patient medications and allergies were reviewed. The patient's tolerance of previous anesthesia was also reviewed. The risks and benefits of the procedure and the sedation options and risks were discussed with the patient. All questions were answered, and informed consent was obtained. Prior Anticoagulants: The patient has taken no previous anticoagulant or antiplatelet agents. After reviewing the risks and benefits, the patient was deemed in satisfactory condition to undergo the procedure. After I obtained informed consent, the scope was passed under direct vision. Throughout the procedure, the patient's blood pressure, pulse, and oxygen saturations were monitored continuously. The colonoscope was introduced through the anus and advanced to the cecum, identified by appendiceal orifice and ileocecal valve. The colonoscopy was performed without difficulty. The patient tolerated the procedure well. The quality of the bowel preparation was good. Scope In: 7:41:51 AM Scope Withdrawal Time 0 hours 7 minutes 37 seconds Scope Out: 7:53:01 AM Total Procedure Duration Time 0 hours 11 minutes 10 seconds Findings: Two polyps were found in the transverse colon and cecum. The polyps were small in size. These polyps were removed with a hot snare. Resection and retrieval were complete. The exam was otherwise without abnormality on direct and retroflexion views. Impression: - Two small polyps in the transverse colon and in the cecum, removed with a hot snare. Resected and retrieved. - The examination was otherwise normal on direct and retroflexion views. Recommendation: - Discharge patient to home. - Resume previous diet. - Continue present medications. - Await pathology results. - Repeat colonoscopy in 5 years for surveillance. Procedure Code(s): --- Professional --- 14337, Colonoscopy, flexible; with removal of tumor(s), polyp(s), or other lesion(s) by snare technique Diagnosis Code(s): --- Professional --- D12.3, Benign neoplasm of transverse colon (hepatic flexure or splenic flexure) D12.0, Benign neoplasm of cecum K57.32, Diverticulitis of large intestine without perforation or abscess without bleeding CPT copyright 2017 [employer]. All rights reserved. The codes documented in this report are preliminary and upon hr systems analyst review may be revised to meet current compliance requirements. Isac Aranda MD 03/29/2023 8:02:41 AM This report has been signed electronically. Number of Addenda: 0 Note Initiated On: 03/29/2023 7:19 AM
--- NOTE | 2023-03-29 08:04 | OP.CCLET_ITS ---
03/29/2023 Callum Alston [address] [place] [address] Re : Colonoscopy procedure for West Jane Dear Dr. Alston This procedure was performed on Wednesday, March 29, 2023. My impressions and recommendations are as follows: Impressions : - Two small polyps in the transverse colon and in the cecum, removed with a hot snare. Resected and retrieved. - The examination was otherwise normal on direct and retroflexion views. Recommendations : - Discharge patient to home. - Resume previous diet. - Continue present medications. - Await pathology results. - Repeat colonoscopy in 5 years for surveillance. My findings are described in the full procedure note, which is enclosed. If I can be of further assistance, please feel free to contact me at Doctor phone number(s): , Work: . Sincerely, Isac Aranda MD 03/29/2023 8:02:41 AM This report has been signed electronically.
[2023-03-29 08:08] VITALS: BP 103/77; BP 120/83; PULSE 61; RESP 16; O2SAT 93
[2023-03-29 08:13] VITALS: BP 109/83; BP 120/83; PULSE 68; RESP 16; TEMP 36.3; O2SAT 94
[2023-03-29 08:28] VITALS: BP 120/83
== END 2023-03-29 08:29 | disposition home or self-care (01) ==
LOC: EN 06:15 → AC 06:17
PROVIDERS: PCP Family Medicine; Referring Provider Family Medicine; Visit Provider Surgery
PROC: 0DJD8ZZ Inspection of Lower Intestinal Tract, Via Natural or Artificial Opening Endoscopic (ICD-10-PCS; CPT 45378; principal; 2023-03-29 07:25)
DX: D12.3 Benign neoplasm of transverse colon (principal); K57.32 Diverticulitis of large intestine without perforation or abscess without bleeding; F17.200 Nicotine dependence, unspecified, uncomplicated; D12.0 Benign neoplasm of cecum; I10 Essential (primary) hypertension; Z79.899 Other long term (current) drug therapy; K21.9 Gastro-esophageal reflux disease without esophagitis; E78.00 Pure hypercholesterolemia, unspecified
CPT/HCPCS: 45385; 88305; J7120; J2405

== ENCOUNTER → 2023-05-08 | Outpatient (CLI) | payer BC, SELFPAY ==
[2023-05-08 10:45] LABS: Erythrocyte Sedimentation Rate 9 mm/hr (0-20)
[2023-05-08 10:47] LABS: Absolute Lymphocyte Count 2.66 X10^3/uL (0.83-4.51); Absolute Neutrophil Count 3.6 X10^3/uL (2.0-7.7); Basophil# 0.02 X10^3/uL; Basophil% 0.3 % (0-1); Eosinophil# 0.31 X10^3/uL; Eosinophils% 4.2 % (0-5); Hematocrit 47.7 % (40-54); Lymphocyte # 2.66 X10^3/ul (0.83-4.51); Lymphocyte % 36.1 % (19-41); Mean Corp Hgb Conc 33.5 g/dL (32-36); Mean Corpuscular Hgb 29.5 pg (27.0-32.0); Mean Corpuscular Volume 87.8 fL (80-94); Monocyte# 0.79 X10^3/uL; Monocyte% 10.7 % (0-10); NRBC Flagged by Analyzer 0 % (0-5); Neutrophil # 3.56 X10^3/uL (2.7-7.7); Neutrophil % 48.4 % (47-70); Platelet Count 246 K/mm3 (150-450); RBC Distribution Width CV 13.2 % (11.6-14.6); RBC Distribution Width SD 42.5 fl (35.1-43.9); Red Blood Count 5.43 M/mm3 (4.6-6.2); White Blood Count 7.4 K/mm3 (4.4-11.0)
--- NOTE | 2023-05-08 10:58 | RAD_ITS ---
EXAM: XR ABDOMEN, 2 VIEWS AND XR CHEST, 1 VIEW CLINICAL INDICATION: PAIN TECHNIQUE: Frontal view of the chest, frontal view of the abdomen/pelvis and upright or decubitus view of the abdomen. COMPARISON: No relevant prior studies available. FINDINGS: CHEST: LUNGS AND PLEURAL SPACES: Unremarkable. No consolidation or edema. No pneumothorax. No effusion. HEART: Unremarkable. Cardiac silhouette not enlarged. MEDIASTINUM: Central airways and mediastinal contour are unremarkable. ABDOMEN: INTRAPERITONEAL SPACE: No free air. GASTROINTESTINAL TRACT: Unremarkable. Non-obstructive. No bowel or stomach distention. ORGANS: Unremarkable as visualized. No organomegaly. No abnormal calcifications. TUBES, LINES AND DEVICES: None. BONES/JOINTS: No acute findings. SOFT TISSUES: No acute findings. RAD/Acute Abdomen Inc Chest IMPRESSION: Negative chest and abdominal series. Electronically Signed: Osman Granados MD at 3:47 EDT ,
--- NOTE | 2023-05-08 11:05 | RAD_ITS ---
EXAM: XR RIGHT FOOT COMPLETE, 3 OR MORE VIEWS CLINICAL INDICATION: pain pain TECHNIQUE: Frontal, lateral and oblique views of the right foot. COMPARISON: No relevant prior studies available. 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 There is a plantar calcaneal spur. No acute fracture. No subluxation. Normal alignment. No sclerotic or destructive changes observed. SOFT TISSUES: Unremarkable. No soft tissue swelling or gas. No radiopaque foreign body. RAD/Foot min 3 Views IMPRESSION: 1. Degenerative changes, as above. 2. No demonstrated fracture, dislocation, or destructive osseous lesion. Electronically Signed: Jose Antonio Mclaughlin MD at 5:04 EDT Reading Location ID and State: [facility] / [place] , Service support ,
[2023-05-08 11:43] LABS: ALB/GLOB Ratio 1.1 RATIO (0.9-2.4); AST(SGOT) 15 U/L (15-37); Alanine Aminotransfer ALT/SGPT 27 U/L (16-61); Albumin, Serum 3.7 g/dL (3.2-5.0); Alkaline Phosphatase 63 U/L (45-117); Anion Gap 8 (5-15); BUN 20 mg/dL (7-18); BUN/Creat Ratio 18.3 RATIO (10-20); Calcium,Total 8.9 mg/dL (8.5-10.1); Chloride 109 mmol/L (98-107); Cholesterol 142 mg/dL (200); Creatinine, Serum 1.09 mg/dL (0.70-1.30); EST Glomerular Filtration Rate 74 mL/min (>60); Est Glom Filt Rate - Afr Amer 90 mL/min (>60); Globulin 3.3 g/dL (2.2-4.2); Glucose 101 mg/dL (74-106); High Density Lipoprotein 39 mg/dL; PSA,Total - Annual Screen 1.07 ng/mL (0.00-4.00); Potassium 3.7 mmol/L (3.5-5.1); Sodium Level 141 mmol/L (136-145); Thyroid Stim Hormone (TSH) 2.15 uIU/mL (0.358-3.74); Triglycerides 213 mg/dL; Very Low Density Lipoprotein 43 mg/dL (5-40)
[2023-05-09 16:09] LABS: Deamidated Gliadin IgA 4 units (0-19); Deamidated Gliadin IgG 2 units (0-19); Endomysial Antibody IgA Negative (Negative); Immunoglobulin A 92 mg/dL (90-386); t-Transglutaminase IgA <2 U/mL (0-3)
[2023-05-12 11:07] LABS: Beef <0.10 kU/L (Class 0); Chocolate <0.10 kU/L (Class 0); Corn <0.10 kU/L (Class 0); Egg, Whole <0.10 kU/L (Class 0); Milk (Cow) <0.10 kU/L (Class 0); Peanut <0.10 kU/L (Class 0); Pork <0.10 kU/L (Class 0); Soybean <0.10 kU/L (Class 0); Wheat <0.10 kU/L (Class 0)
== END | disposition home or self-care (01) ==
LOC: MTLAB 07:05
PROVIDERS: PCP Family Medicine; Referring Provider Family Medicine; Visit Provider Family Medicine
DX: Z12.5 Encounter for screening for malignant neoplasm of prostate (principal); K58.9 Irritable bowel syndrome, unspecified; M79.671 Pain in right foot
CPT/HCPCS: 36415; 73630; 74022; 80053; 80061; 82784; 83516; 84153; 84443; 85025; 85652; 86003; 86005; 86255; G0103

== ENCOUNTER → 2023-07-25 | Outpatient (CLI) | payer BC, SELFPAY ==
[2023-07-25 10:14] LABS: Hematocrit 46.9 % (40-54); Hemoglobin 15.6 g/dL (13.0-16.5); Mean Corp Hgb Conc 33.3 g/dL (32-36); Mean Corpuscular Hgb 29.5 pg (27.0-32.0); Mean Corpuscular Volume 88.7 fL (80-94); Mean Platelet Vol. 10.3 fl (6.2-12.0); Platelet Count 242 K/mm3 (150-450); RBC Distribution Width SD 42.1 fl (35.1-43.9); Red Blood Count 5.29 M/mm3 (4.6-6.2)
[2023-07-25 10:21] LABS: International Normalized Ratio 1.1; Partial Thromboplast Time 27.8 Seconds (24.1-36.2); Prothrombin Time (Protime)PT. 13.8 SECONDS (11.7-14.9)
[2023-07-25 10:43] LABS: Anion Gap 5 (5-15); BUN 22 mg/dL (7-18); BUN/Creat Ratio 23.1 RATIO (10-20); Calcium,Total 8.7 mg/dL (8.5-10.1); Chloride 111 mmol/L (98-107); Creatinine, Serum 0.95 mg/dL (0.70-1.30); EST Glomerular Filtration Rate 87 mL/min (>60); Est Glom Filt Rate - Afr Amer 105 mL/min (>60); Glucose 101 mg/dL (74-106); Potassium 3.9 mmol/L (3.5-5.1); Sodium Level 142 mmol/L (136-145)
== END | disposition home or self-care (01) ==
LOC: MTLAB 09:23
PROVIDERS: PCP Family Medicine; Visit Provider Family Medicine
DX: Z01.818 Encounter for other preprocedural examination (principal)
CPT/HCPCS: 36415; 80048; 85027; 85610; 85730

== ENCOUNTER 2023-08-16 05:48 | Day surgery (SDC) | payer BC, SELFPAY ==
[2023-08-16 06:15] VITALS: BP 137/89; PULSE 71; RESP 16; TEMP 36.3; O2SAT 98; BMI 35.4
[2023-08-16] MEDS: 0.9% Normal Saline (1000mL) 1,000 ML 25 ML IV (06:30)
[2023-08-16] MEDS: Cefazolin 2 GM in 0.9% Normal Saline (100mL Bag) 100 ML IV (07:30)
--- NOTE | 2023-08-16 07:30 | RAD_ITS ---
EXAM: XR RIGHT FOOT COMPLETE, 3 OR MORE VIEWS CLINICAL INDICATION: RIGHT 1ST MPJ FUSION -- -- 87 SEC, 0.46 MGY, 5 IMAGES TECHNIQUE: Frontal, lateral and oblique views of the right foot. COMPARISON: No relevant prior studies available. FINDINGS: 5 fluoroscopic spot views of the toes obtained during surgical fusion of the first MTP joint. Partially threaded screw across the joint space. Dorsal plate is also in place. See operative note for additional information. Total of 87 seconds of fluoroscopy time noted. A total dose of 0.46 mGy. RAD/Foot min 3 Views IMPRESSION: As above. Electronically Signed: Felice Vasquez MD at 15:30 EDT ,
[2023-08-16] MEDS: Bupivacaine Mpf 0.5% 30 ML VIAL (07:57)
[2023-08-16] MEDS: BACITRACIN/POLYMYXIN B 15 GM Tube 1 APPLIC (09:46)
[2023-08-16 09:56] VITALS: BP 106/87; BP 137/89; PULSE 84; RESP 16; TEMP 36.2; O2SAT 94
[2023-08-16 10:00] VITALS: BP 116/86; BP 137/89; PULSE 79; RESP 16; O2SAT 93
--- NOTE | 2023-08-16 10:00 | RAD_ITS ---
STUDY: X-RAY - RIGHT FOOT CLINICAL: Male, 58 years old. Right foot TECHNIQUE: 3 view(s) of the foot. COMPARISON: Comparison is made with prior study dated May 08, 2023. FINDINGS: The patient is status post fusion at the first metatarsophalangeal joint with the screws and plate fixation device. Postoperative soft tissue swelling. RAD/Foot min 3 Views IMPRESSION: Status post fusion at the first metatarsophalangeal joint with postoperative soft tissue swelling. Electronically Signed: Ac Dempsey MD at 11:14 EDT ,
[2023-08-16 10:14] VITALS: BP 123/83; BP 137/89; PULSE 71; RESP 16; O2SAT 95
[2023-08-16 10:21] VITALS: BP 119/81; BP 137/89; PULSE 67; RESP 16; TEMP 36.3; O2SAT 94
--- NOTE | 2023-08-16 10:47 | PCM.OPRPT ---
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 Patient induced under general anesthesia. Well-padded right ankle tourniquet applied. Right lower extremity bump to knock on external rotation position. Preoperatively 10 cc half percent Marcaine plain were used in a Luna block technique using standard technique. Once cleared by anesthesia right lower extremity was elevated exsanguinated tourniquet was inflated 250 mmHg. Incision was drawn just medial to the extensor hallucis longus tendon traversing the first metatarsal phalangeal joint from the distal first metatarsal shaft to the midshaft of the proximal phalanx of the hallux. This incision was made with a #15 blade through epidermis and dermis into subcutaneous tissue. New bleeders were identified and cauterized at this time blunt dissection was taken down to the level of joint capsule. Any neurovascular structures identified and protected with blunt retraction. A linear capsulotomy was performed using 15 blade and the dorsal medial lateral aspects of the first metatarsal head and proximal phalangeal base were cleared of any joint capsule via this linear capsulotomy to allow for adequate exposure of the first metatarsophalangeal joint using atraumatic technique. Examination of the first metatarsophalangeal joint demonstrates complete articular cartilage loss of the first metatarsal phalangeal joint with to the dorsal surfaces of the first metatarsal head and proximal phalangeal base along with diffuse spurring along the distal first metatarsal head and proximal phalangeal base. Once the first metatarsal head was exposed a guidewire was placed and checked fluoroscopically in the central aspect of the first metatarsal head and cup and cone reamers were then used to denude the first metatarsal head and proximal phalangeal phalanx of any articular cartilage. After mention process was repeated with the proximal phalangeal base. In the residual cartilage and interposing bone was then dissected with combination of bone rongeurs and the first metatarsal head and proximal phalangeal base were further shaped using a sagittal saw. The joint was flushed with copious amounts of normal sterile saline. And then subchondral drilling was performed to the proximal and distal aspects of the joint of the proximal phalangeal base and first metatarsal head using a 2 oh drill bit. Temporary fixation was placed from proximal medial to distal lateral across first metatarsal phalangeal joint with of great toe held in a rectus position with 0 degrees rotation with regards to frontal plane. Toe is parallel to the adjacent digits in rectus alignment. And 15 degrees of dorsiflexion. This confirmed intraoperatively and fluoroscopically. This confirmed a 3 oh headless compression screw was placed using manufactures guidelines from distal medial to proximal lateral roll across the proximal phalangeal joint to maintain joint apposition allow for gentle compression across the fusion site. Next a dorsal locking plate was placed using Mantex's first metatarsophalangeal joint plate. Combination of 3 locking and nonlocking screws to 7 were applied distally followed by 3 oh locking and nonlocking screws proximally using manufactures guidelines. Final images were checked fluoroscopically. Noted to be in a rectus alignment. Tourniquet was let down. Total tourniquet time was maybe 82 minutes. Any bleeders were cut identified cauterized again at this time. Once adequate hemostasis was acquired incisional site was flushed with copious amounts normal sterile saline. Capsular closure was performed with running interlocking 3-0 Vicryl. Simple interrupted closure was performed to deep subcutaneous tissue. And skin closure performed with horizontal mattress using 4-0 nylon. Additional 20 cc half percent Marcaine plain were injected using Luna block to standard technique bacitracin Adaptic was applied to the incisional site after the foot was cleaned and a dressing consisting of 4 x 4's Kerlix and a well-padded AO splint was applied to allow for stability and dressing to allow for compression management on the surgical site. Patient was transferred to PACU vital signs stable vascular status intact all digits for further monitoring prior to discharge. Patient tolerated procedure and anesthesia well apparent satisfactory condition. Patient will follow-up in 1 week maintain nonweightbearing to right lower extremity. Grafts/Implants Used: Action Engineis 3 oh headless compression screw, Mantex 1st mpj plate
[2023-08-16] MEDS: oxyCODONE 5 MG Tablet 10 MG PO (10:49)
[2023-08-16 11:16] VITALS: BP 137/89
== END 2023-08-16 11:36 | disposition home or self-care (01) ==
LOC: SDC 05:48 → AC 05:49
PROVIDERS: PCP Family Medicine; Referring Provider Podiatrist; Visit Provider Podiatrist
PROC: (CPT 28750; principal; 2023-08-16 07:15)
DX: M20.21 Hallux rigidus, right foot (principal); I10 Essential (primary) hypertension; K21.9 Gastro-esophageal reflux disease without esophagitis; E78.00 Pure hypercholesterolemia, unspecified; F17.200 Nicotine dependence, unspecified, uncomplicated; Z79.899 Other long term (current) drug therapy
CPT/HCPCS: 28750; 01480; 73630; 76000; C1713; J7030; J2405

== ENCOUNTER → 2024-01-03 | Outpatient (CLI) | payer BC, SELFPAY ==
--- NOTE | 2024-01-03 | LES_PTH ---
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 West Alston MD : 1965 BED: DIS: 01/03/2024 SPEC #: [id number] RECD: 01/03/24 12:34 STATUS: DILLON REJennifer #: [id number] PATRICIA: 01/03/24 00:[address]: West Alston DEPT: SURGICAL PATHOLOGY RECD BY: Farhan Fernandes ENTERED: 01/03/24 12:34 SP TYPE: Lesion Tissues: Skin of pubic area Procedures: Surgery Specimen Level IV HEADER OPERATION: Excision suprapubic area PRE-OP DIAGNOSIS: Nonhealing wound TISSUE SUBMITTED: Right pubic area MICROSCOPIC DIAGNOSIS Right pubic area lesion, excisional biopsy: Acute and chronic inflammation and abscess formation and foreign body giant cell reaction. Negative for malignancy. See comment. SJ:carin 01/06/2024 COMMENT Clinical correlation and appropriate follow up are necessary. MICROSCOPIC DESCRIPTION Slides are reviewed. GROSS DESCRIPTION Received in fixative is one container labeled with the patient's name and designated suprapubic. The specimen consists of a colmenares-white skin ellipse measuring 3.8 x 1.4 x 0.7 cm. Focal area of ulceration is noted on the surface. The specimen is inked, serially sectioned and submitted entirely in three cassettes. / THOMAS:carin 01/03/2024 TC:3 CPT: 03277
== END | disposition home or self-care (01) ==
PROVIDERS: PCP Family Medicine; Referring Provider Family Medicine; Visit Provider Family Medicine
DX: L02.214 Cutaneous abscess of groin (principal); L92.3 Foreign body granuloma of the skin and subcutaneous tissue
CPT/HCPCS: 88305

== ENCOUNTER 2024-03-13 05:41 | Day surgery (SDC) | payer BC, SELFPAY ==
[2024-03-13] VITALS (7 sets, daily range): BP systolic 121–149; BP diastolic 67–84; PULSE 66–77; RESP 14–20; TEMP 36–36.7; O2SAT 92–96; BMI 38.0
--- NOTE | 2024-03-13 | UL_PTH ---
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 Nilsa Genao MD : 1965 BED: DIS: 03/13/2024 SPEC #: [id number] RECD: 03/13/24 12:47 STATUS: DILLON REQ #: [id number] PATRICIA: 03/13/24 00:[address]: Nilsa Genao DEPT: SURGICAL PATHOLOGY RECD BY: Farhan Fernandes ENTERED: 03/13/24 12:48 SP TYPE: ULCER OTHR DR: Dr. West Alston MD Tissues: ULCER Procedures: Surgery Specimen Level III HEADER OPERATION: Incision and drainage excision of nonhealing wound PRE-OP DIAGNOSIS: Non-healing wound: Suprapubic region TISSUE SUBMITTED: Suprapubic area tissue MICROSCOPIC DIAGNOSIS Skin and soft tissue of suprapubic region, excision: Ulceration with associated acute and chronic inflammation and granulation. Focal hyperkeratosis. / 03/16/2024 MICROSCOPIC DESCRIPTION Slides are reviewed. GROSS DESCRIPTION Received in fixative is one container labeled with the patient's name and designated Suprapubic area tissue. The specimen consists of a piece of colmenares-white skin and underlying tissue measuring 4.5 x 1.2cm and up to 1.5cm in thickness. A piece of adipose tissue is also noted measuring 1.5 x 1.5x 1.0cm. A focal ulcerated area is noted on the skin surface. Web Search Evaluator sections are submitted in two cassettes. / 03/13/2024 TC:2 CPT: 60467
--- NOTE | 2024-03-13 06:33 | PCM.HP.BLA ---
History and Physical Date of Admission: 03/13/24 Date of Service: 02/28/24 MR#: [id number] Acct: [id number] Name: ROBI CARTER Rep #: [id number] : 1965 Provider: Dr. 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 Required: No Is patient in pain?: No Allergies morphine Adverse Reaction (Mild, Verified 02/28/24 09:58) Other Medications atorvastatin 20 mg tablet 20 mg PO QHS cholesterol 01/30/23 [History Confirmed 02/28/24] fluticasone propionate 50 mcg/actuation nasal spray,suspension 1 spray intranasal PRN PRN ALLERGIES 01/30/23 [History Confirmed 02/28/24] loratadine 10 mg tablet 10 mg PO DAILY allergies 01/30/23 [History Confirmed 02/28/24] losartan 50 mg tablet 50 mg PO QHS bp 01/30/23 [History Confirmed 02/28/24] omeprazole 40 mg capsule,delayed release 40 mg PO QHS GERD 01/30/23 [History Confirmed 02/28/24] trazodone 150 mg tablet 150 mg PO QHS sleep 01/30/23 [History Confirmed 02/28/24] PFSH Medical History (Updated 02/28/24 @ 10:[address] Nilsa Genao MD) Alcohol use Back pain CPAP (continuous positive airway pressure) dependence Diverticulitis Diverticulitis of sigmoid colon Gastric reflux Hallux rigidus of right foot Hidradenitis suppurativa High cholesterol History of diverticulitis History of edema History of irregular heartbeat History of stress test HTN (hypertension) Hyperlipemia Hypertension Other acute postprocedural pain Sleep apnea Smoker Wears glasses Surgical History (Updated 02/28/24 @ 09:57 by Esha Red) History of foot surgery Hx of colonoscopy Hx of tonsillectomy Family History (Updated 02/28/24 @ 09:57 by Esha Red) Father Cancer Lung Cancer Social History (Updated 02/28/24 @ 09:58 by Esha Red) Smoking Status: Current every day smoker alcohol intake: current alcohol intake frequency: holidays/special occasions only substance use type: does not use HPI HPI HPI: 58-year-old male presents due to a nonhealing suprapubic skin lesion/wound. Patient states he has had problems with this for years was diagnosed with hidradenitis by her 1 web page designer however this only occurs at the suprapubic region patient has no issues in the groins or armpits. Patient had been on clindamycin or doxycycline chronically in the past. Patient did have an excision by Dr. Staley in December and pathology just showed some acute chronic inflammation and abscess formation foreign body giant cell reaction negative for malignancy. Patient states that that wound never completely healed from December still has occasional sanguinous drainage on dressing and a couple weeks after the procedure did have some tannish drainage. Patient was not on any antibiotics since the excision and area has gotten smaller initially and thought that maybe the area is currently a little bigger than previous. ROS General General: No weight change, appetite, fatigue, colon cancer or breast cancer HEENT HEENT: No difficulty swallowing, eye injury, eye surgery, swollen glands or hoarseness Endo Endocrine: No thyroid disease, diabetes mellitus, thyroid cancer, Hair loss, heat intolerance or cold intolerance Skin Skin: No rash or changing moles Musc Musculoskeletal: No back problems, arthritis, rheumatoid arthritis, gout or joint pain Cardio Cardiovascular: Yes murmur and high blood pressure; No pacemaker, heart disease, atrial fibrillation, heart attack, heart stent, palpitations, shortness of breath with exertion or chest pain Additional Details: High Cholesterol Psych Psychiatric: No depression, anxiety or hearing voices Resp Respiratory: No shortness of breath, Yes sleep apnea, No cough, No COPD, No asthma, No emphysema and No wheezing Gastro Gastrointestinal: No abdominal pain, No nausea or vomiting, No diarrhea, No constipation, No blood in stool, Yes acid reflux, No hemorrhoids, No ulcers, No gallbladder problem and No black,tarry stools Dk Hematologic: No blood thinners, No blood disorders, No bleeding, No anemia and No blood clots Neuro Neurologic: No numbness and No tingling Exam Const General: cooperative Orientation: alert and oriented x3 HENMT Head: normal to inspection Neck Neck: normal visual inspection and full ROM Chest Chest palpation & inspection: normal inspection of the chest Resp Effort & Inspection: normal respiratory effort Auscultation: clear to auscultation bilaterally Cardio Rate: regular rate Rhythm: regular rhythm GI Inspection: non-distended Palpation: soft and nontender Skin Other: Suprapubic nonhealing wound about a centimeter half by a centimeter, mild induration no area of surrounding erythema, mildly tender to palpation, small mount sanguinous drainage on dressing. Neuro General: patient alert and patient oriented x3 Extrem General: full ROM Psych Appearance: grossly normal Mental Status: mental status grossly normal Assessment and Plan Assessment and Plan (1) Non-healing wound: Status: Acute Comment: suprapubic region Plan Discussed with patient we will plan for a larger area of excision of this tissue as the previous pathology did show chronic and acute inflammation and abscess formation see if we able to get good tissue to come back together. Patient is aware that there is a risk of dealing with wound care afterwards as well. Discussed risk including but not limited to bleeding, infection, need for further surgery. Also discussed with patient would want to do this in the OR as I could get a better excision of this area. Patient was agreeable with plan. Nilsa Genao M.D. Pager: [phone] [facility] [address] [place] [address], [address] [place] [address] Office: [phone] Coding Level of Care Code Off vis,new,level 3 Diagnoses Non-healing wound 02/28/24 1036 <Electronically signed by Nilsa Genao MD> Date Nilsa Genao MD
[2024-03-13 06:38] LABS: Hematocrit 40.3 % (40-54); Hemoglobin 13.5 g/dL (13.0-16.5); Mean Corp Hgb Conc 33.5 g/dL (32-36); Mean Corpuscular Hgb 28.3 pg (27.0-32.0); Mean Corpuscular Volume 84.5 fL (80-94); Mean Platelet Vol. 9.7 fl (6.2-12.0); Platelet Count 218 K/mm3 (150-450); RBC Distribution Width CV 13.2 % (11.6-14.6); RBC Distribution Width SD 40.4 fl (35.1-43.9); Red Blood Count 4.77 M/mm3 (4.6-6.2); White Blood Count 6.6 K/mm3 (4.4-11.0)
[2024-03-13] MEDS: Lactated Ringers 1,000 ML 15 ML IV (06:42)
[2024-03-13] MEDS: Cefazolin 3 GM in 0.9% Normal Saline (100mL Bag) 100 ML IV (07:29)
[2024-03-13] MEDS: Lidocaine 1% /Epi 1:100 (20ml) 20 ML Vial (07:59)
--- NOTE | 2024-03-13 07:59 | PCM.OPRPT ---
Report of Operation Date of Procedure: 03/13/24 Pre-Operative Diagnosis: Nonhealing suprapubic wound Post-Operative Diagnosis: Same Surgery/Procedure Performed:: Excision of suprapubic nonhealing wound Surgeon: Nilsa Genao electrophysiology technologist: Clif Bliss Type of Anesthesia: General/Supplemental Anesthesiologist: Pierre Giordano Special Medications: Ancef 3 g IV x 1 Specimen's removed: Suprapubic nonhealing wound Estimated Blood Loss (mL): 15 cc Description of Procedure: Patient was brought in operating room placed upon the operating table. Timeout was completed verifying correct patient, procedure, site, positioning, special, prior to beginning procedure. General anesthesia was induced. Patient's suprapubic area was prepped draped usual sterile fashion with Betadine. Elliptical excision was planned around the nonhealing wound-incision made with 15 blade scalpel. This was deepened with electrocautery. Hemostasis electrocautery. Excised to the area grossly normal tissue. Small amount of purulent material was seen as well as removal of hair. Incision was irrigated with saline. Specimen was sent to pathology. Incision was closed with horizontal mattress sutures of 3-0 nylon x 3 and 2 simple interrupted. Telfa and pressure dressing placed. Patient tolerated procedure well was taken to the postanesthesia care unit in stable condition.
--- NOTE | 2024-03-13 08:03 | DCINST_ITS ---
Discharge Instructions Diet Discharge Diet: Light diet - advance as tolerated Activity Discharge Activity: May Not Drive (while taking narcotic pain medications.) May shower in (days): 1 Dressing / Incision Call your doctor if your incision/area has: Continuous Slow Oozing, Sudden Increased Bleeding, Increased Pain/ Swelling, Increased Redness, Foul Smelling Discharge and Swelling at the incision site Call your doctor if you observe: Fever of 101 or Higher Remove Dressing in: 2 days Cleanse incision/area with: Soap & Water (Soap & water can run over do not scrub incision.) Additional Dressing/Incision Instructions:: Change 4 x 4 as needed and daily Follow Up Care Please Follow Up With: Nilsa Genao MD When: Call the office for a follow-up appointment 10 days; after 5 PM and on the weekends call [phone] with any concerns. Test Results: Test results from this visit will be discussed in further detail at your follow- up appointment, if applicable. Discharge Plan Admission Attending Provider: Nilsa Genao Primary Care Provider: West Alston Discharge Orders/Prescriptions Prescriptions: Continued losartan 50 mg tablet 50 mg PO QHS Patient Comments: TAKE 1 TABLET BY MOUTH EVERY DAY atorvastatin 20 mg tablet 20 mg PO QHS Patient Comments: TAKE 1 TABLET BY MOUTH EVERY DAY omeprazole 40 mg capsule,delayed release(DR/EC) 40 mg PO QHS trazodone 150 mg tablet 150 mg PO QHS Patient Comments: TAKE 1 TABLET BY MOUTH EVERYDAY AT BEDTIME loratadine 10 mg tablet 10 mg PO DAILY Referrals / Follow Up: West Alston MD [Primary Care Provider] - Disposition Disposition (needs filled in before D/C Order can be placed): Home, Self Care
== END 2024-03-13 09:36 | disposition home or self-care (01) ==
LOC: SDC 05:41 → AC 05:42
PROVIDERS: Anesthesiology; PCP Family Medicine; Referring Provider Surgery; Visit Provider Surgery
PROC: (CPT 38500; principal; 2024-03-13 07:15)
DX: T81.89XA Other complications of procedures, not elsewhere classified, initial encounter (principal); L98.499 Non-pressure chronic ulcer of skin of other sites with unspecified severity; Y83.8 Other surgical procedures as the cause of abnormal reaction of the patient, or of later complication, without mention of misadventure at the time of the procedure; L57.0 Actinic keratosis; I10 Essential (primary) hypertension; E78.00 Pure hypercholesterolemia, unspecified; F17.200 Nicotine dependence, unspecified, uncomplicated
CPT/HCPCS: 11042; 00400; 85027; 88304; J7120; J2405

== ENCOUNTER 2024-04-17 11:14 | Day surgery (SDC) | payer BC, SELFPAY ==
--- NOTE | 2024-04-17 | UL_PTH ---
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 Nilsa Genao MD : 1965 BED: DIS: 04/17/2024 SPEC #: [id number] RECD: 04/17/24 18:07 STATUS: DILLON REJennifer #: [id number] PATRICIA: 04/17/24 00:[address]: Nilsa Genao DEPT: SURGICAL PATHOLOGY RECD BY: Farhan Fernandes ENTERED: 04/21/24 10:12 SP TYPE: ULCER OTHR DR: Dr. West Alston MD Tissues: ULCER Procedures: Surgery Specimen Level III HEADER OPERATION: Re-excision non healing wound pubic area PRE-OP DIAGNOSIS: Non-healing wound TISSUE SUBMITTED: Supra pubic wound tissue MICROSCOPIC DIAGNOSIS Skin and soft tissue of supra pubic lesion, excision: Dermal acute and chronic inflammation, fibrosis, and fat necrosis. Skin and soft tissue with focal ulceration associated granulation and acute and chronic inflammation. No evidence of malignancy. / 04/24/2024 MICROSCOPIC DESCRIPTION Slides are reviewed. GROSS DESCRIPTION Received in fixative is one container labeled with the patient's name and designated Supra pubic wound tissue. The specimen consists of an ellipse of light colmenares skin with attached yellow fatty tissue. The specimen measures 6.5 x 2.0cm and excised with a depth of 2.5cm. The cutaneous surface displays a well healed scar. Serial sections reveal [id number] cut surfaces. No distinct mass lesion is identified. Eight Arm Operator sections are submitted in three cassettes. / 04/21/2024 TC:2 CPT:76925
[2024-04-17 11:49] VITALS: BP 153/102; PULSE 76; RESP 17; TEMP 36.9; O2SAT 99; BMI 36.8
[2024-04-17] MEDS: Lactated Ringers 1,000 ML 15 ML IV ×2 (12:02→14:20)
--- NOTE | 2024-04-17 12:31 | HP.PCM_ITS ---
History and Physical Date of Admission: 04/17/24 Date of Service: 04/09/24 MR#: [id number] Acct: [id number] Name: ROBI ACRTER Rep #: [id number] : 1965 Provider: Dr. Nilsa Genao MD Age/Sex: 58/M Location: [facility] Status: Signed Intake Vital Signs 03/13/2406:35 Height 5 ft 9.6 in Intake Visit Reasons: WOUND CHK Chief Complaint: suture removal Allergies morphine Adverse Reaction (Mild, Verified 04/09/24 08:51) Other Medications ?Medication ?Instructions ?Recorded ?Confirmed ?Type atorvastatin 20 mg tablet 20 mg PO QHS cholesterol 01/30/23 04/09/24 History loratadine 10 mg tablet 10 mg PO DAILY allergies 01/30/23 04/09/24 History losartan 50 mg tablet 50 mg PO QHS bp 01/30/23 04/09/24 History omeprazole 40 mg capsule,delayed 40 mg PO QHS GERD 01/30/23 04/09/24 History release trazodone 150 mg tablet 150 mg PO QHS sleep 01/30/23 04/09/24 History tirzepatide (weight loss) 2.5 2.5 mg subcut QWEEK 03/24/24 04/09/24 History mg/0.5 mL subcutaneous pen injector [facility] Medical History (Updated 03/24/24 @ 09:08 by Shannan Estrada) Restless legs Former smoker Non-healing wound Hallux rigidus of right foot Other acute postprocedural pain Wears glasses Alcohol use High cholesterol History of diverticulitis Gastric reflux CPAP (continuous positive airway pressure) dependence History of edema History of stress test History of irregular heartbeat Hidradenitis suppurativa Hypertension Diverticulitis of sigmoid colon Diverticulitis Hyperlipemia HTN (hypertension) Surgical History History of foot surgery Hx of colonoscopy Hx of tonsillectomy S/P excision of skin lesion, follow-up exam Family History Father Cancer Lung Cancer Social History Smoking Status: Former smoker alcohol intake: current alcohol intake frequency: holidays/special occasions only substance use type: does not use HPI HPI HPI: 58-year-old male presents status post excision of nonhealing wound suprapubic area for follow-up. Patient states the incision did become count of a cyst again yesterday and he did have serosanguineous drainage in the shower at the area of the incision. Previous to this it was healing well. Exam Const General: cooperative Orientation: alert and oriented x3 HENMT Head: normal to inspection Neck Neck: normal visual inspection and full ROM Chest Chest palpation & inspection: normal inspection of the chest Resp Effort & Inspection: normal respiratory effort Auscultation: clear to auscultation bilaterally Cardio Rate: regular rate Rhythm: regular rhythm GI Inspection: non-distended Palpation: soft and nontender Skin Other: Suprapubic nonhealing wound about a centimeter half by a centimeter, mild induration no area of surrounding erythema, mildly tender to palpation, small mount sanguinous drainage on dressing. Neuro General: patient alert and patient oriented x3 Extrem General: full ROM Psych Appearance: grossly normal Mental Status: mental status grossly normal Assessment and Plan Assessment and Plan (1) Non-healing wound: Status: Inactive Comment: suprapubic region Plan Discussed with patient that this would likely need a larger area of excision as it did recur. Patient is agreeable with plan of reexcision of nonhealing suprapubic wound. Patient understand risk including not limited to bleeding, infection, need for further surgery. Patient no further questions this time. Nilsa Genao M.D. Pager: [phone] [facility] [address] [place] [address], [address] [place] [address] Office: [phone] Coding Level of Care Code Off vis,est,level 3 Diagnoses Non-healing wound 04/10/24 1200 <Electronically signed by Nilsa Genao MD> Date Nilsa Genao MD
[2024-04-17] MEDS: Cefazolin 3 GM in 0.9% Normal Saline (100mL Bag) 100 ML IV (13:24)
[2024-04-17] MEDS: Bupivacaine Mpf 0.5% 30 ML VIAL (14:00)
--- NOTE | 2024-04-17 14:03 | PCM.OPRPT ---
Report of Operation Date of Procedure: 04/17/24 Pre-Operative Diagnosis: non healing supra pubic wound Post-Operative Diagnosis: same Surgery/Procedure Performed:: excision of nonhealing suprapubic wound Surgeon: Nilsa Genao Type of Anesthesia: General/Supplemental Anesthesiologist: Jaya Fisher Special Medications: ancef 3 grams IV x1 Specimen's removed: suprapubic skin lesion Estimated Blood Loss (mL): < 10 cc Description of Procedure: Patient was brought in operating room placed upon the operating table. Timeout was completed verifying correct patient, procedure, site, positioning, special, prior to beginning procedure. General anesthesia was induced. Patient's suprapubic area was prepped draped usual sterile fashion with Betadine. Elliptical excision was planned around the nonhealing wound-incision made with 15 blade scalpel. This was deepened with electrocautery. Hemostasis electrocautery. Excised to the area grossly normal tissue. Incision was irrigated with saline. Specimen was sent to pathology. Incision was closed with horizontal mattress sutures of 3-0 nylon x 5 and 2 simple interrupted. Telfa and gauze dressing placed. Patient tolerated procedure well was taken to the postanesthesia care unit in stable condition. Complications none
[2024-04-17 14:08] VITALS: BP 153/102; BP 157/87; PULSE 77; RESP 16; TEMP 36.2; O2SAT 93
--- NOTE | 2024-04-17 14:11 | DCINST_ITS ---
Discharge Instructions Diet Discharge Diet: Light diet - advance as tolerated Activity Discharge Activity: May Shower Lifting Restrictions: Avoid strenuous exercise x 1 to 2 weeks Dressing / Incision Call your doctor if your incision/area has: Continuous Slow Oozing, Sudden Increased Bleeding, Increased Pain/ Swelling, Increased Redness, Foul Smelling Discharge and Swelling at the incision site Change Dressing in: 1 day Remove Dressing in: 1 day Cleanse incision/area with: Soap & Water Additional Dressing/Incision Instructions:: Keep hair clipped, keep [address] may have some drainage change as needed Follow Up Care Please Follow Up With: Nilsa Genao MD When: Call us for a follow-up appointment in 10 days for suture removal. Test Results: Test results from this visit will be discussed in further detail at your follow- up appointment, if applicable. Discharge Plan Admission Attending Provider: Nilsa Genao Primary Care Provider: [place] Instructions Print Language: Lithuanian Discharge Orders/Prescriptions Prescriptions: No Action tirzepatide (weight loss) 2.5 mg/0.5 mL pen injector 2.5 mg subcut FR losartan 50 mg tablet 100 mg PO QHS Patient Comments: TAKE 1 TABLET BY MOUTH EVERY DAY atorvastatin 20 mg tablet 20 mg PO QHS Patient Comments: TAKE 1 TABLET BY MOUTH EVERY DAY omeprazole 40 mg capsule,delayed release(DR/EC) 40 mg PO QHS trazodone 150 mg tablet 150 mg PO QHS Patient Comments: TAKE 1 TABLET BY MOUTH EVERYDAY AT BEDTIME loratadine 10 mg tablet 10 mg PO DAILY hydroxyzine HCl 25 mg tablet 25 mg PO QHS Referrals / Follow Up: [place] MD [Primary Care Provider] - Disposition Disposition (needs filled in before D/C Order can be placed): Home, Self Care
[2024-04-17 14:15] VITALS: BP 116/83; BP 153/102; PULSE 76; RESP 16; O2SAT 95
[2024-04-17 14:21] VITALS: BP 136/95; BP 153/102; PULSE 72; RESP 16; TEMP 36; O2SAT 93
[2024-04-17 14:40] VITALS: BP 153/102
[2024-04-17] MEDS: oxyCODONE 5 MG Tablet PO (14:46)
== END 2024-04-17 15:24 | disposition home or self-care (01) ==
LOC: SDC 11:15 → AC 11:16
PROVIDERS: PCP Family Medicine; Referring Provider Surgery; Visit Provider Surgery
PROC: (CPT 38500; principal; 2024-04-17 12:45)
DX: T81.89XA Other complications of procedures, not elsewhere classified, initial encounter (principal); Y83.8 Other surgical procedures as the cause of abnormal reaction of the patient, or of later complication, without mention of misadventure at the time of the procedure; I10 Essential (primary) hypertension; E78.00 Pure hypercholesterolemia, unspecified; Z87.891 Personal history of nicotine dependence
CPT/HCPCS: 11042; 00400; 88304; J7120; J2405

== ENCOUNTER → 2024-11-19 | Outpatient (CLI) | payer BC, SELFPAY ==
[2024-11-19 12:12] LABS: Hematocrit 46.2 % (40-54); Hemoglobin 15.6 g/dL (13.0-16.5); Mean Corp Hgb Conc 33.8 g/dL (32-36); Mean Corpuscular Hgb 29.3 pg (27.0-32.0); Mean Corpuscular Volume 86.8 fL (80-94); Mean Platelet Vol. 10.2 fl (6.2-12.0); Platelet Count 251 K/mm3 (150-450); RBC Distribution Width CV 13.2 % (11.6-14.6); RBC Distribution Width SD 41.4 fl (35.1-43.9); Red Blood Count 5.32 M/mm3 (4.6-6.2); White Blood Count 7.3 K/mm3 (4.4-11.0)
[2024-11-19 12:31] LABS: AST(SGOT) 15 U/L (15-37); Alanine Aminotransfer ALT/SGPT 24 U/L (16-61); Albumin, Serum 3.5 g/dL (3.2-5.0); Alkaline Phosphatase 57 U/L (45-117); Anion Gap 5 (5-15); BUN 24 mg/dL (7-18); Calcium,Total 8.8 mg/dL (8.5-10.1); Chloride 108 mmol/L (98-107); Cholesterol 219 mg/dL (200); Creatinine, Serum 1.09 mg/dL (0.70-1.30); EST Glomerular Filtration Rate 74 mL/min (>60); Est Glom Filt Rate - Afr Amer 89 mL/min (>60); Globulin 3.5 g/dL (2.2-4.2); Glucose 93 mg/dL (74-106); High Density Lipoprotein 50 mg/dL; PSA,Total - Annual Screen 2.98 ng/mL (0.00-4.00); Potassium 3.8 mmol/L (3.5-5.1); Sodium Level 138 mmol/L (136-145); Triglycerides 192 mg/dL; Very Low Density Lipoprotein 38 mg/dL (5-40)
== END | disposition home or self-care (01) ==
LOC: MFPLAB 10:53
PROVIDERS: PCP Family Medicine; Referring Provider Family Medicine; Visit Provider Family Medicine
DX: Z12.5 Encounter for screening for malignant neoplasm of prostate (principal); K21.9 Gastro-esophageal reflux disease without esophagitis; I10 Essential (primary) hypertension
CPT/HCPCS: 36415; 80053; 80061; 84153; 85027; G0103